=== PATIENT | female | born 1950 | race Caucasian/White ===

== ENCOUNTER → 2019-08-17 | Outpatient (CLI) | payer MEDICARE ==
--- NOTE | 2019-08-18 12:55 | SLEEP ---
DATE OF STUDY: 08/17/2019 SLEEP STUDY The patient is a 68-year-old who weighs 160 pounds with a BMI of 26. The patient's Jessie score was 5. The patient underwent diagnostic sleep study performed at [facility]. During the night study, the patient spent 459 minutes in bed and slept for 353 minutes with a sleep efficiency of 77%. Sleep latency was 20 minutes with a REM latency of 136 minutes. Sleep architecture showed normal stage 1 sleep, increased stage 2 sleep, normal slow wave and normal REM sleep. During the night study, the patient had no obstructive apneas, no mixed or central apneas. There were 13 hypopneas. The patient's AHI was 2 per hour, supine AHI 3 per hour and REM AHI of 12 per hour. Nocturnal oximetry study revealed a mean oxygen saturation of 94% with the lowest of 85%. 23% of time oxygen saturation remained between 80% and 89%. EKG monitoring revealed normal sinus rhythm, no sustained arrhythmias observed. Mean heart rate 70 beats per minute. PLMs were seen at index of 19 per hour and 6 per hour caused EEG arousals. Due to low AHI, the patient did not meet the split night criteria for CPAP initiation. IMPRESSION: 1. No clinically significant sleep disorder breathing. The patient's AHI for the entire night was 2 per hour. Mild REM related hypopneas seen. 2. Sustained mild nocturnal hypoxia, likely related to hypoventilation. 3. Mild periodic limb movements. RECOMMENDATIONS: 1. The patient did not meet the criteria for CPAP initiation due to low AHI. 2. Weight loss, the ideal body weight is recommended. 3. Avoid [employer] depressants. 4. PLMs does not need to be treated unless the patient has symptoms of restless legs during the day. MARTHA TAYLOR MD DR: CAT/mary ann JOB#: [id number] / [id number] SUKUMAR Potter MD
== END ==
LOC: SLPLAB 19:17
PROVIDERS: ATTEND Family Medicine
DX: G47.52 REM sleep behavior disorder (principal); G47.33 Obstructive sleep apnea (adult) (pediatric); I67.89 Other cerebrovascular disease
CPT/HCPCS: 95810